=== PATIENT | male | born 1995 | race Caucasian/White ===

== ENCOUNTER 2018-08-12 12:42 | Emergency (ER) | payer MEDICAID ==
[~2018-08-12] VITALS: Ht 170.2 cm; Wt 54.4 kg
[2018-08-12 13:41] VITALS: BP 109/88
== END 2018-08-12 13:49 | disposition home or self-care (01) ==
LOC: M.ERS 12:42
DX: Z71.1 Person with feared health complaint in whom no diagnosis is made (principal)